=== PATIENT | male | born 1955 | race Caucasian/White ===

== ENCOUNTER 2022-03-31 21:14 | Inpatient (IN) | payer OTHER ==
[~2022-03-31] VITALS: Ht 172.7 cm; Wt 64.5 kg
[2022-04-01] VITALS (49 sets, daily range): BP systolic 77–117; BP diastolic 53–89
[2022-04-01 00:34] LABS: HEMATOCRIT. 41.5 % (42.0-52.0); HEMOGLOBIN. 13.6 g/dL (14.0-18.0); MEAN CORPUSCULAR HEMOGLOBIN 28.8 pg (28.0-32.0); MEAN CORPUSCULAR VOLUME 87.8 fL (80.0-94.0); MEAN PLATELET VOLUME 10.3 fl (7.4-10.4); PLATELET 74 x1000/uL (130-400); RED BLOOD CELL COUNT 4.72 mill/uL (4.7-6.1); RED CELL DISTRIBUTION WIDTH 14.9 % (11.6-14.6)
[2022-04-01 00:38] LABS: CHLORIDE 97 mEq/L (98-107)
[2022-04-01 01:06] LABS: PLATELET ESTIMATE DECREASED
[2022-04-01] MEDS ORDERED: PIPERACILLIN/TAZ 3.375G PREMIX 50 ML IV NR (01:45)
[2022-04-01] MEDS ORDERED: PIPERACILLIN/TAZOBACTAM 3.375GM/50ML PREMIX IV ONE (01:45)
[2022-04-01] MEDS ORDERED: SODIUM CHLORIDE 0.9% 1000ML BAG (SEPSIS BOLUS) IV ONE (01:45)
[2022-04-01] MEDS ORDERED: VANCOMYCIN 1G PREMIX 200 ML IV SCH (01:45)
[2022-04-01] MEDS ORDERED: FENTANYL CITRATE/PF 50MCG/ML 2ML VIAL IV NR (02:45)
[2022-04-01] MEDS ORDERED: SODIUM CHLORIDE 0.9% 1,000 ML IV ONE (04:00)
[2022-04-01] MEDS ORDERED: NOREPINEPHRINE 8 MG in DEXT 5% WATER 242 ML IV PRN (04:30)
[2022-04-01] MEDS ORDERED: NOREPINEPHRINE 8MG/250ML PMX 250 ML IV NR (04:30)
[2022-04-01] MEDS ORDERED: CLONIDINE 0.1MG TABLET PO PRN (07:45)
[2022-04-01] MEDS ORDERED: ACETAMINOPHEN 325MG TABLET PO PRN (07:45)
[2022-04-01] MEDS ORDERED: MAGNESIUM/ALUMINUM HYDROXIDE/SIMETHICONE 30ML UDC PO PRN (07:45)
[2022-04-01] MEDS ORDERED: PIPERACILLIN/TAZOBACTAM 3.375 G in DEXTROSE 5% WATER 50 ML IV SCH (07:45)
[2022-04-01] MEDS ORDERED: DIPHENHYDRAMINE 50MG/ML VIAL IV PRN (07:45)
[2022-04-01] MEDS ORDERED: HYDROCODONE/ACETAMINOPHEN 5/325MG TABLET PO PRN (07:45)
[2022-04-01] MEDS ORDERED: ONDANSETRON HCL 4MG/2ML INJ IV PRN (07:45)
[2022-04-01] MEDS ORDERED: IPRATROPIUM/ALBUTEROL 0.5-3(2.5)MG/3ML NEB NEB PRN (07:45)
[2022-04-01] MEDS ORDERED: NA PHOS,M-B/NA PHOS,DI-BA ENEMA 118ML PR PRN (07:45)
[2022-04-01] MEDS ORDERED: ENOXAPARIN 40MG/0.4ML SYR SUBCUT SCH (07:45)
[2022-04-01] MEDS ORDERED: DOCUSATE SODIUM 100MG CAPSULE PO PRN (07:45)
[2022-04-01] MEDS ORDERED: GUAIFENESIN 200MG/10ML SUGAR FREE UDC PO PRN (07:45)
[2022-04-01] MEDS ORDERED: LIDOCAINE HCL 1% 10 MG/ML 10ML VIAL ONE (07:59)
[2022-04-01] MEDS ORDERED: ENOXAPARIN 30MG/0.3ML SYR SUBCUT SCH (09:00)
[2022-04-01] MEDS: DEXT 5%/0.45% NACL 1000ML 1,000 ML IV SCH ×3 (09:57→21:49)
[2022-04-01] MEDS ORDERED: PIPERACILLIN/TAZ 3.375G PREMIX 50 ML IV SCH (10:00)
[2022-04-01] MEDS ORDERED: NOREPINEPHRINE 16 MG in DEXT 5% WATER 242 ML IV PRN (13:15)
[2022-04-01] MEDS ORDERED: NOREPINEPHRINE 8MG/250ML PMX 250 ML IV PRN (13:30)
[2022-04-01 13:47] LABS: CREATINE KINASE MB FRACTION 32.8 ng/mL (0.5-3.6)
[2022-04-01 13:52] LABS: T4 FREE 1.25 ng/dL (0.76-1.46)
[2022-04-01] MEDS: NOREPINEPHRINE 8 MG in DEXTROSE 5% WATER 250 ML IV PRN ×2 (14:15→18:49)
[2022-04-01] MEDS: MORPHINE SULFATE 2 MG/ML CPJ (NOT FOR IM USE) IV PRN ×3 (14:17→23:22)
[2022-04-01] MEDS: PIPERACILLIN/TAZOBACTAM 3.375 G in DEXTROSE 5% WATER 50 ML IV SCH ×2 (14:20→22:08)
[2022-04-01] MEDS ORDERED: NALOXONE HCL 0.4MG/ML VIAL IV PRN (18:00)
[2022-04-01 23:54] LABS: CREATINE KINASE MB FRACTION 27.3 ng/mL (0.5-3.6)
[2022-04-02] VITALS (94 sets, daily range): BP systolic 84–144; BP diastolic 42–87
[2022-04-02] MEDS: MORPHINE SULFATE 2 MG/ML CPJ (NOT FOR IM USE) IV PRN ×4 (04:15→19:55)
[2022-04-02] MEDS: NOREPINEPHRINE 8 MG in DEXTROSE 5% WATER 250 ML IV PRN ×2 (04:33→15:06)
[2022-04-02] MEDS: DEXT 5%/0.45% NACL 1000ML 1,000 ML IV SCH (04:57)
[2022-04-02 05:41] LABS: CHLORIDE 104 mEq/L (98-107)
[2022-04-02 06:00] LABS: CREATINE KINASE 1611 IU/L (39-308); CREATINE KINASE MB FRACTION 21.3 ng/mL (0.5-3.6); PHOSPHORUS 6.7 mg/dL (2.5-4.9)
[2022-04-02] MEDS: PIPERACILLIN/TAZOBACTAM 3.375 G in DEXTROSE 5% WATER 50 ML IV SCH (08:29)
[2022-04-02] MEDS ORDERED: LIDOCAINE HCL 1% 10 MG/ML 10ML VIAL ONE (08:35)
[2022-04-02] MEDS ORDERED: ASPIRIN 81MG TABLET PO SCH (09:00)
[2022-04-02 09:07] LABS: INR 1.4
[2022-04-02 09:10] LABS: HEMATOCRIT. 37.8 % (42.0-52.0); HEMOGLOBIN. 12.3 g/dL (14.0-18.0); MEAN CORPUSCULAR HEMOGLOBIN 28.4 pg (28.0-32.0); MEAN CORPUSCULAR VOLUME 87.3 fL (80.0-94.0); MEAN PLATELET VOLUME 12.2 fl (7.4-10.4); RED BLOOD CELL COUNT 4.33 mill/uL (4.7-6.1); RED CELL DISTRIBUTION WIDTH 15.3 % (11.6-14.6)
[2022-04-02 09:21] LABS: PLATELET 26 x1000/uL (130-400)
[2022-04-02] MEDS: SODIUM BICARBONATE 100 MEQ in DEXT 5%/0.45% NACL 1000ML 1,000 ML IV SCH ×2 (10:18→22:06)
[2022-04-02 10:39] LABS: HEPATITIS B SURFACE ANTIGEN NEGATIVE
[2022-04-02 10:55] LABS: PLATELET ESTIMATE MARKEDLY DECREASED
[2022-04-02] MEDS ORDERED: MEROPENEM 1,000 MG in SODIUM CHLORIDE 0.9% 100 ML IV SCH (12:00)
[2022-04-02] MEDS: PANTOPRAZOLE SODIUM 40 MG/VIAL IV SCH (12:57)
[2022-04-02] MEDS: MEROPENEM 500MG in NORMAL SALINE 50ML IV SCH (13:40)
[2022-04-03] VITALS (46 sets, daily range): BP systolic 87–135; BP diastolic 19–92
[2022-04-03] MEDS: MEROPENEM 500MG in NORMAL SALINE 50ML IV SCH ×2 (03:24→14:29)
[2022-04-03 05:52] LABS: HEMATOCRIT. 33.6 % (42.0-52.0); HEMOGLOBIN. 11.2 g/dL (14.0-18.0); MEAN CORPUSCULAR HEMOGLOBIN 28.7 pg (28.0-32.0); MEAN CORPUSCULAR VOLUME 86.4 fL (80.0-94.0); MEAN PLATELET VOLUME 10.4 fl (7.4-10.4); RED BLOOD CELL COUNT 3.89 mill/uL (4.7-6.1); RED CELL DISTRIBUTION WIDTH 14.9 % (11.6-14.6)
[2022-04-03 06:51] LABS: PLATELET 18 x1000/uL (130-400)
[2022-04-03 09:00] LABS: PLATELET ESTIMATE MARKEDLY DECREASED
[2022-04-03] MEDS: SODIUM BICARBONATE 100 MEQ in DEXT 5%/0.45% NACL 1000ML 1,000 ML IV SCH (10:21)
[2022-04-03] MEDS: PANTOPRAZOLE SODIUM 40 MG/VIAL IV SCH (10:28)
[2022-04-03] MEDS: DEXT 5%/0.45% NACL 1000ML 1,000 ML IV SCH ×2 (11:12→18:22)
[2022-04-03] MEDS: MORPHINE SULFATE 2 MG/ML CPJ (NOT FOR IM USE) IV PRN (12:36)
== END 2022-04-03 22:10 | disposition short-term general hospital (02) | DRG 720 ==
LOC: ER 21:14 → MICUSO 04-01 04:14 → ENRESERV 04-01 07:17
PROVIDERS: ADMIT Internal Medicine; ATTEND Internal Medicine
PROC: 02HV33Z Insertion of Infusion Device into Superior Vena Cava, Percutaneous Approach (ICD-10-PCS; 2022-04-01)
PROC: B548ZZA Ultrasonography of Superior Vena Cava, Guidance (ICD-10-PCS; 2022-04-01)
PROC: 5A1D70Z Performance of Urinary Filtration, Intermittent, Less than 6 Hours Per Day (ICD-10-PCS; principal; 2022-04-02)
PROC: 02HV33Z Insertion of Infusion Device into Superior Vena Cava, Percutaneous Approach (ICD-10-PCS; 2022-04-02)
PROC: B548ZZA Ultrasonography of Superior Vena Cava, Guidance (ICD-10-PCS; 2022-04-02)
PROC: 30233R1 Transfusion of Nonautologous Platelets into Peripheral Vein, Percutaneous Approach (ICD-10-PCS; 2022-04-03)
DX: A41.59 Other Gram-negative sepsis (principal); N17.0 Acute kidney failure with tubular necrosis; R65.21 Severe sepsis with septic shock; I21.4 Non-ST elevation (NSTEMI) myocardial infarction; G93.40 Encephalopathy, unspecified; K80.63 Calculus of gallbladder and bile duct with acute cholecystitis with obstruction; K85.90 Acute pancreatitis without necrosis or infection, unspecified; D64.9 Anemia, unspecified; I42.9 Cardiomyopathy, unspecified; D68.9 Coagulation defect, unspecified; D69.59 Other secondary thrombocytopenia; E86.0 Dehydration; I11.0 Hypertensive heart disease with heart failure; I50.9 Heart failure, unspecified; Z20.822 Contact with and (suspected) exposure to COVID-19
CPT/HCPCS: 36415; 36573; 71045; 74176; 74181; 76700; 76937; 78227; 80048; 80053; 80061; 80076; 82550; 82553; 83036; 83605; 83735; 83880; 84100; 84145; 84439; 84443; 84484; 85025; 85362; 85379; 85384; 86705; 86709; 86803; 86850; 86900; 87077; 87186; 87340; 87426; 93005; 93306; 93970; 99291; A9537; C1725; C1752; C1769; C1887; C9113; J2185; J2270; J2405; J2543; J3010; J3370; J3490; J7030; J7060; P9034